=== PATIENT | female | born 1945 | race Caucasian/White ===

== ENCOUNTER 2017-06-21 15:18 | Emergency (ER) | payer MEDICARE, OTHER ==
[~2017-06-21] VITALS: Ht 162.6 cm; Wt 90.7 kg
[~2017-06-21 15:18] MED LIST: B12; BENADRYL25 MG PO; BENICAR20 MG PO; CALCIUM600 MG PO; CENTRAL-VITE H1 EACH PO; CITALOPRAM HBR20 MG PO; CYANOCOBAL1000 MCG/M IV; CYCLOBENZAPRINE5 MG; DILTIAZEM 24HR180 M1 PO; DILTIAZEM ER180 MG PO; DOXYCYCLINE HYC50 MG PO; EFFEXOR XR150 MG PO; EFFEXOR XR75 MG PO; EPIPEN JR0.15 MG/0. IM; HYDROCHLOROTH12.5 MG PO; HYDROCHLOROTHIA25 MG PO; HYDROCODON-ACE1 EAC8 PO; HYDROCODONE-HOMA5 ML PO; KLOR-CON M1010 MEQ PO; LORTAB ELIXIR473 ML PO; MIRALAX17 GM PO; NORCO 5-325 TA1 EACH PO; NORTRIPTYLINE H10 MG PO; NUCYNTA50 MG PO; OMEPRAZOLE20 MG PO; OMEPRAZOLE40 MG PO; PREVACID30 M1 PO; PROBIOTIC & AC1 EACH PO; TRAMADOL HCL50 MG; TRAMADOL HCL50 MG PO; TRAZODONE HCL100 MG PO; VITAMIN D32000 UNI1 PO
[2017-06-21] MEDS ORDERED: ULTRAM50 MG PO (17:11)
== END 2017-06-21 17:43 | disposition home or self-care (01) ==
LOC: ED 15:18
DX: S63.501A Unspecified sprain of right wrist, initial encounter (principal); S00.81XA Abrasion of other part of head, initial encounter; S69.92XA Unspecified injury of left wrist, hand and finger(s), initial encounter; K21.9 Gastro-esophageal reflux disease without esophagitis; I10 Essential (primary) hypertension; Z90.49 Acquired absence of other specified parts of digestive tract; Z90.710 Acquired absence of both cervix and uterus; Z98.890 Other specified postprocedural states; Z88.7 Allergy status to serum and vaccine; Z88.8 Allergy status to other drugs, medicaments and biological substances; Z88.5 Allergy status to narcotic agent; Z90.12 Acquired absence of left breast and nipple; Z88.6 Allergy status to analgesic agent; Z79.899 Other long term (current) drug therapy; W01.198A Fall on same level from slipping, tripping and stumbling with subsequent striking against other object, initial encounter
CPT/HCPCS: 70450; 71045; 73110; 99284

== ENCOUNTER 2019-04-17 07:51 | Emergency (ER) | payer MEDICARE, OTHER ==
[~2019-04-17] VITALS: Ht 162.6 cm; Wt 90.7 kg
[~2019-04-17 07:51] MED LIST changes: +ULTRAM50 MG PO
[2019-04-17] MEDS ORDERED: ACYCLOVIR400 MG PO (08:22)
[2019-04-17] MEDS ORDERED: ZYLOPRIM300 MG PO (08:24)
[2019-04-17] MEDS ORDERED: AMOXICILLIN500 MG PO (08:36)
[2019-04-17] MEDS ORDERED: ZOFRAN4 MG PO (08:36)
[2019-04-17] MEDS ORDERED: ULTRAM50 MG PO (08:36)
== END 2019-04-17 08:56 | disposition home or self-care (01) ==
LOC: ED 07:51
DX: K08.89 Other specified disorders of teeth and supporting structures (principal); I10 Essential (primary) hypertension; K21.9 Gastro-esophageal reflux disease without esophagitis; Z88.7 Allergy status to serum and vaccine; Z88.8 Allergy status to other drugs, medicaments and biological substances; Z88.5 Allergy status to narcotic agent; Z79.01 Long term (current) use of anticoagulants; Z79.82 Long term (current) use of aspirin; Z91.012 Allergy to eggs; Z79.899 Other long term (current) drug therapy
CPT/HCPCS: 99282

== ENCOUNTER 2020-07-16 10:45 | Emergency (ER) | payer MEDICARE, OTHER ==
[~2020-07-16] VITALS: Ht 162.6 cm; Wt 81.6 kg
[~2020-07-16 10:45] MED LIST changes: +ACYCLOVIR400 MG PO; +AMOXICILLIN500 MG PO; +ZOFRAN4 MG PO; +ZYLOPRIM300 MG PO
[2020-07-16] MEDS ORDERED: POTASSIUM CHLOR8 ME1 PO (11:12)
[2020-07-16] MEDS ORDERED: METOPROLOL SUCC50 MG PO (11:12)
[2020-07-16] MEDS ORDERED: NITROGLYCERIN0.4 MG SL (11:12)
[2020-07-16] MEDS ORDERED: OXYBUTYNIN CHLO10 MG PO (11:12)
[2020-07-16] MEDS ORDERED: AMLODIPINE BESY10 MG PO (11:12)
== END 2020-07-16 12:13 | disposition home or self-care (01) ==
LOC: ED 10:45
DX: S20.212A Contusion of left front wall of thorax, initial encounter (principal); W01.198A Fall on same level from slipping, tripping and stumbling with subsequent striking against other object, initial encounter; I10 Essential (primary) hypertension; K21.9 Gastro-esophageal reflux disease without esophagitis; Z88.7 Allergy status to serum and vaccine; Z88.8 Allergy status to other drugs, medicaments and biological substances; Z88.5 Allergy status to narcotic agent; Z91.012 Allergy to eggs; Z79.899 Other long term (current) drug therapy
CPT/HCPCS: 71101; 99283-25

== ENCOUNTER 2021-02-12 10:41 | Emergency (ER) | payer OTHER, MEDICARE ==
[~2021-02-12] VITALS: Ht 162.6 cm; Wt 81.7 kg
[~2021-02-12 10:41] MED LIST changes: +AMLODIPINE BESY10 MG PO; +METOPROLOL SUCC50 MG PO; +NITROGLYCERIN0.4 MG SL; +OXYBUTYNIN CHLO10 MG PO; +POTASSIUM CHLOR8 ME1 PO
== END 2021-02-12 11:36 | disposition home or self-care (01) ==
LOC: ED 10:41
PROC: 0HQGXZZ Repair Left Hand Skin, External Approach (ICD-10-PCS; principal; 2021-02-12)
DX: S61.412A Laceration without foreign body of left hand, initial encounter (principal); I10 Essential (primary) hypertension; Z88.7 Allergy status to serum and vaccine; Z91.048 Other nonmedicinal substance allergy status; Z88.8 Allergy status to other drugs, medicaments and biological substances; Z88.5 Allergy status to narcotic agent; Z88.6 Allergy status to analgesic agent; Z79.899 Other long term (current) drug therapy; W23.0XXA Caught, crushed, jammed, or pinched between moving objects, initial encounter
CPT/HCPCS: 12002; 99282-25

== ENCOUNTER 2021-10-27 20:55 | Emergency (ER) | payer MEDICARE, OTHER ==
[~2021-10-27] VITALS: Ht 162.6 cm; Wt 83.3 kg
[2021-10-27] MEDS ORDERED: NEXIUM 24HR20 M2 PO (21:07)
== END 2021-10-27 21:52 | disposition home or self-care (01) ==
LOC: ED 20:55
DX: S63.501A Unspecified sprain of right wrist, initial encounter (principal); W18.30XA Fall on same level, unspecified, initial encounter; I10 Essential (primary) hypertension; K21.9 Gastro-esophageal reflux disease without esophagitis; M19.90 Unspecified osteoarthritis, unspecified site; Z88.7 Allergy status to serum and vaccine; Z88.8 Allergy status to other drugs, medicaments and biological substances; Z88.5 Allergy status to narcotic agent; Z91.012 Allergy to eggs; Z88.6 Allergy status to analgesic agent; Z79.899 Other long term (current) drug therapy
CPT/HCPCS: 73090; 73130; 99283-25; A9270

== ENCOUNTER 2022-03-03 21:15 | Emergency (ER) | payer MEDICARE, OTHER ==
[~2022-03-03] VITALS: Ht 162.6 cm; Wt 79.0 kg
[~2022-03-03 21:15] MED LIST changes: +NEXIUM 24HR20 M2 PO
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
[2022-03-04] MEDS ORDERED: BENZONATATE100 MG PO (01:11)
== END 2022-03-04 01:38 | disposition home or self-care (01) ==
LOC: ED 21:15
DX: J04.0 Acute laryngitis (principal); I10 Essential (primary) hypertension; K21.9 Gastro-esophageal reflux disease without esophagitis; Z20.822 Contact with and (suspected) exposure to COVID-19; Z79.899 Other long term (current) drug therapy
CPT/HCPCS: 71045; 87081; 87502; 87880; 99283-25; U0003

== ENCOUNTER 2022-07-12 18:20 | Emergency (ER) | payer MEDICARE, OTHER ==
[~2022-07-12] VITALS: Ht 162.6 cm; Wt 79.0 kg
[~2022-07-12 18:20] MED LIST changes: +BENZONATATE100 MG PO
[2022-07-12] MEDS ORDERED: DOXYCYCLINE HY100 MG PO (19:08)
== END 2022-07-12 20:25 | disposition home or self-care (01) ==
LOC: ED 18:20
DX: S61.451A Open bite of right hand, initial encounter (principal); S61.551A Open bite of right wrist, initial encounter; W55.01XA Bitten by cat, initial encounter; I10 Essential (primary) hypertension; K21.9 Gastro-esophageal reflux disease without esophagitis; Z88.7 Allergy status to serum and vaccine; Z88.8 Allergy status to other drugs, medicaments and biological substances; Z88.5 Allergy status to narcotic agent; Z88.1 Allergy status to other antibiotic agents; Z91.012 Allergy to eggs; Z79.899 Other long term (current) drug therapy; Z88.6 Allergy status to analgesic agent
CPT/HCPCS: 36415; 85025; 96374; 99283-25; A9270

== ENCOUNTER 2023-04-10 20:45 | Emergency (ER) | payer OTHER, MEDICARE ==
[~2023-04-10] VITALS: Ht 162.6 cm; Wt 85.4 kg
[~2023-04-10 20:45] MED LIST changes: +DOXYCYCLINE HY100 MG PO
[2023-04-10] MEDS ORDERED: GEMTESA75 MG PO (21:06)
[2023-04-10] MEDS ORDERED: BENICAR40 MG PO (21:07)
[2023-04-10] MEDS ORDERED: VENLAFAXINE HC225 MG PO (21:08)
[2023-04-10] MEDS ORDERED: IVIZIA 0.5% EYE5 ML OP (21:09)
[2023-04-10] MEDS ORDERED: MACULAR VITAMI1 EACH PO (21:10)
[2023-04-10] MEDS ORDERED: CYCLOBENZAPRINE10 MG PO (21:14)
[2023-04-10] MEDS ORDERED: PREDNISONE20 MG PO (21:14)
[2023-04-10 21:56] VITALS: BP 159/72
== END 2023-04-10 21:56 | disposition home or self-care (01) ==
LOC: ED 20:45
DX: S16.1XXA Strain of muscle, fascia and tendon at neck level, initial encounter (principal); M43.6 Torticollis; I10 Essential (primary) hypertension; X58.XXXA Exposure to other specified factors, initial encounter; Z88.7 Allergy status to serum and vaccine; Z88.8 Allergy status to other drugs, medicaments and biological substances; Z88.5 Allergy status to narcotic agent; Z79.899 Other long term (current) drug therapy
CPT/HCPCS: 99283; J7512

== ENCOUNTER 2023-06-05 20:10 | Emergency (ER) | payer MEDICARE, OTHER ==
[~2023-06-05] VITALS: Ht 162.6 cm; Wt 85.4 kg
[~2023-06-05 20:10] MED LIST changes: +BENICAR40 MG PO; +CYCLOBENZAPRINE10 MG PO; +GEMTESA75 MG PO; +IVIZIA 0.5% EYE5 ML OP; +MACULAR VITAMI1 EACH PO; +PREDNISONE20 MG PO; +VENLAFAXINE HC225 MG PO
[2023-06-05 20:45] LABS: BASOPHILS 0.3 % (0-2); EOSINOPHILS 11.3 % (0-6); HEMOGLOBIN 12.8 g/dL (12.0-18.0); MCH 30.5 (27-36); MCHC 32.8 g/dl (30-36); MCV 92.9 fl (81-99); MONOCYTES 8.6 % (0-12); NEUTROPHILS 59.8 % (39-80); PLATELET COUNT 359 K/uL (140-440); RBC 4.19 M/ul (4.3-5.7); RDW 14.5 (10.5-15.0)
[2023-06-05 20:53] LABS: INR 0.95 (0.80-1.30)
[2023-06-05 21:11] LABS: ALBUMIN 3.1 g/dL (3.4-5.0); ALBUMIN/GLOBULIN RATIO 0.69 (1.1-2.4); ANION GAP 13.6 (7-21); BILIRUBIN, TOTAL 0.4 ng/dL (0.2-1.0); BUN/CREATININE RATIO 8.54 (6.0-28.6); CALCIUM 8.8 mg/dL (8.5-10.1); CREATININE, SERUM 1.17 mg/dL (0.55-1.02); POTASSIUM 3.6 mmol/L (3.5-5.1); PROTEIN, TOTAL 7.6 g/dL (6.4-8.2)
[2023-06-05 21:25] LABS: INFLUENZA B NAA NEGATIVE (NEGATIVE); RESPIRATORY SYNCYTIAL VIR NAA NEGATIVE (NEGATIVE)
[2023-06-05] MEDS ORDERED: AMOX TR-K CLV1 EAC1 PO (23:17)
[2023-06-05 23:28] VITALS: BP 147/89
--- NOTE | 2023-06-07 15:22 | EKG ---
[facility] [address] [facility] [place], [place] [address] Signed Sinus rhythm with marked sinus arrhythmia Otherwise normal ECG When compared with ECG of 14-NOV-2016 12:22, No significant change was found Confirmed by SHONNA DAVID MD ([id number]) on 06/07/2023 3:22:24 PM Electronically Signed By: SHONNA DAVID 06/07/23 1522 PATIENT NAME: DAMARIS KIM CATARINO Electrocardiogram DATE OF : 45 PHYSICIAN: SHONNA DAVID REPORT #: [id number] REPORT IS CONFIDENTIAL AND NOT TO BE RELEASED WITHOUT AUTHORIZATION
== END 2023-06-05 23:29 | disposition home or self-care (01) ==
LOC: ED 20:10
PROVIDERS: Emergency Medicine
DX: J01.00 Acute maxillary sinusitis, unspecified (principal); D72.829 Elevated white blood cell count, unspecified; I10 Essential (primary) hypertension; M79.7 Fibromyalgia; Z11.52 Encounter for screening for COVID-19; Z88.7 Allergy status to serum and vaccine; Z88.8 Allergy status to other drugs, medicaments and biological substances; Z88.5 Allergy status to narcotic agent; Z88.6 Allergy status to analgesic agent; Z91.012 Allergy to eggs; Z91.048 Other nonmedicinal substance allergy status; Z79.899 Other long term (current) drug therapy
CPT/HCPCS: 36415; 70486; 71045; 80053; 83605; 84484; 85025; 85610; 87502; 93005; 93010; 96374; 99284-25; J0696; J7030; U0002

== ENCOUNTER 2024-01-17 07:57 | Emergency (ER) | payer MEDICARE, OTHER ==
[~2024-01-17] VITALS: Ht 162.6 cm; Wt 83.7 kg
[~2024-01-17 07:57] MED LIST changes: +AMOX TR-K CLV1 EAC1 PO
[2024-01-17] MEDS ORDERED: TOBREX3.5 GM OPTH (08:38)
[2024-01-17 08:44] VITALS: BP 167/70
== END 2024-01-17 08:43 | disposition home or self-care (01) ==
LOC: ED 07:57
DX: H10.9 Unspecified conjunctivitis (principal); I10 Essential (primary) hypertension; K21.9 Gastro-esophageal reflux disease without esophagitis; Z88.7 Allergy status to serum and vaccine; Z88.8 Allergy status to other drugs, medicaments and biological substances; Z88.5 Allergy status to narcotic agent; Z91.012 Allergy to eggs; Z91.018 Allergy to other foods; Z79.899 Other long term (current) drug therapy
CPT/HCPCS: 99283

== ENCOUNTER 2024-08-01 07:43 | Day surgery (SDC) | payer MEDICARE, OTHER ==
[2024-07-28 13:25] VITALS: BP 138/92
[~2024-08-01] VITALS: Ht 162.6 cm; Wt 85.5 kg
[~2024-08-01 07:43] MED LIST changes: +BOTULINUM TOXIN TYPE A 100 UNITS VIAL IM ONE; +CEFAZOLIN SODIUM 2 GM/20 ML SYR IV SCH; +COL-RITE100 MG PO; +DEXAMETHASONE SOD PHOS 4 MG/ML VIAL ONE; +FAMOTIDINE 20 MG/ 2 ML VIAL ONE; +IBLOOD GLUCOSE TEST STRIP 1 EA TEST VI PRN; +KETOROLAC TROMETHAMINE 30 MG/ML VIAL ONE; +LACTATED RINGER'S 1,000 ML IV ONE; +LACTATED RINGER'S 1,000 ML IV SCH; +LIDOCAINE HCL 1% 5 ML SDV INJ ONE; +METOCLOPRAMIDE HCL 10 MG/2 ML SDV ONE; +MIDAZOLAM HCL 2 MG/2 ML VIAL ONE; +PATADAY2.5 ML OP; +TOBREX3.5 GM OPTH; +VALACYCLOVIR500 MG PO; +fentaNYL citrate 100 MCG/2 ML VIAL ONE; +ondansetron HCL 4 MG/2 ML VIAL ONE; +propofoL 200 MG/20 ML VIAL ONE
[2024-08-01] MEDS ORDERED: NALOXONE HCL 0.4 MG SYR IV PRN (08:00)
[2024-08-01] MEDS ORDERED: METOCLOPRAMIDE HCL 10 MG/2 ML SDV IV PRN (08:00)
[2024-08-01] MEDS ORDERED: fentaNYL citrate 50 MCG/ML SDV IV PRN (08:00)
[2024-08-01] MEDS ORDERED: MEPERIDINE HCL 25 MG/1 ML VIAL IV PRN (08:00)
[2024-08-01] MEDS ORDERED: IBLOOD GLUCOSE TEST STRIP 1 EA TEST VI PRN (08:00)
[2024-08-01] MEDS ORDERED: ondansetron HCL 4 MG/2 ML VIAL IV PRN ×2 (08:00→09:45)
[2024-08-01] MEDS ORDERED: droPERidol 5 MG/2 ML VIAL IV PRN (08:00)
[2024-08-01] MEDS ORDERED: PROCHLORPERAZINE EDISYLATE 10 MG/2 ML VIAL IV PRN (08:00)
[2024-08-01 08:08] VITALS: BP 148/86
[2024-08-01] MEDS ORDERED: CEPHALEXIN500 MG PO (08:23)
[2024-08-01] MEDS ORDERED: BOTULINUM TOXIN TYPE A 100 UNITS VIAL ONE (09:38)
[2024-08-01] MEDS ORDERED: DEXAMETHASONE SOD PHOS 4 MG/ML VIAL ONE (09:56)
[2024-08-01] MEDS ORDERED: MIDAZOLAM HCL 2 MG/2 ML VIAL ONE (09:56)
[2024-08-01] MEDS ORDERED: diphenhydrAMINE HCL 50 MG/ML VIAL ONE (09:56)
[2024-08-01 11:09] VITALS: BP 137/87
--- NOTE | 2024-08-01 11:39 | NUR ---
08/01/24 1139 Merissa Leon 1038 PT ARRIVED IN PACU SLEEPY WITH NO C/O'S. SATS 88-90% ON RA. ENCOURAGED COUGH, DEEP BREATHING. 1100 SITTING UP IN BED SIPPING ON WATER. 1105 UP TO BATHROOM WITH ONE PERSON ASSIST AND VOIDED 200ML. 1110 BACK AT BEDSIDE GETTING DRESSED. 1124 DC INSTRUCTIONS GIVEN. ALL QUESTIONS ANSWERED. LEFT VIA W/C.
== END 2024-08-01 11:24 | disposition home or self-care (01) ==
LOC: DS 07:43
PROVIDERS: ATTEND Urology
PROC: 0TVD0ZZ Restriction of Urethra, Open Approach (ICD-10-PCS; principal; 2024-08-01 09:20)
PROC: 3E0K8GC Introduction of Other Therapeutic Substance into Genitourinary Tract, Via Natural or Artificial Opening Endoscopic (ICD-10-PCS; 2024-08-01 09:20)
DX: N36.42 Intrinsic sphincter deficiency (ISD) (principal); N39.3 Stress incontinence (female) (male); N32.81 Overactive bladder; I10 Essential (primary) hypertension; K21.9 Gastro-esophageal reflux disease without esophagitis; E78.00 Pure hypercholesterolemia, unspecified; M19.90 Unspecified osteoarthritis, unspecified site; Z88.2 Allergy status to sulfonamides; Z88.5 Allergy status to narcotic agent; Z88.8 Allergy status to other drugs, medicaments and biological substances
CPT/HCPCS: 00910; J0585; J0690; J1100; J1200; J1885; J2250; J2405; J2704; J2765; J3010; J7121; L8606

== ENCOUNTER 2025-01-14 09:46 | Emergency (ER) | payer OTHER, MEDICARE ==
[~2025-01-14] VITALS: Ht 162.6 cm; Wt 85.5 kg
[~2025-01-14 09:46] MED LIST changes: -BOTULINUM TOXIN TYPE A 100 UNITS VIAL IM ONE; -CEFAZOLIN SODIUM 2 GM/20 ML SYR IV SCH; +CEPHALEXIN500 MG PO; -DEXAMETHASONE SOD PHOS 4 MG/ML VIAL ONE; -FAMOTIDINE 20 MG/ 2 ML VIAL ONE; -IBLOOD GLUCOSE TEST STRIP 1 EA TEST VI PRN; -KETOROLAC TROMETHAMINE 30 MG/ML VIAL ONE; -LACTATED RINGER'S 1,000 ML IV ONE; -LACTATED RINGER'S 1,000 ML IV SCH; -LIDOCAINE HCL 1% 5 ML SDV INJ ONE; -METOCLOPRAMIDE HCL 10 MG/2 ML SDV ONE; -MIDAZOLAM HCL 2 MG/2 ML VIAL ONE; -fentaNYL citrate 100 MCG/2 ML VIAL ONE; -ondansetron HCL 4 MG/2 ML VIAL ONE; -propofoL 200 MG/20 ML VIAL ONE
[2025-01-14] MEDS ORDERED: LEVOTHYROXINE25 MCG PO (10:08)
[2025-01-14 12:12] VITALS: BP 143/84
== END 2025-01-14 12:12 | disposition home or self-care (01) ==
LOC: ED 09:46
DX: S20.213A Contusion of bilateral front wall of thorax, initial encounter (principal); M25.511 Pain in right shoulder; W01.0XXA Fall on same level from slipping, tripping and stumbling without subsequent striking against object, initial encounter; I10 Essential (primary) hypertension; K21.9 Gastro-esophageal reflux disease without esophagitis; Z79.899 Other long term (current) drug therapy; Z88.8 Allergy status to other drugs, medicaments and biological substances; Z88.7 Allergy status to serum and vaccine; Z88.5 Allergy status to narcotic agent; Z88.2 Allergy status to sulfonamides; Z91.012 Allergy to eggs; Z91.018 Allergy to other foods
CPT/HCPCS: 70486; 71045; 73030; 99284-25

== ENCOUNTER 2025-02-08 18:38 | Emergency (ER) | payer MEDICARE, OTHER ==
[~2025-02-08] VITALS: Ht 162.6 cm; Wt 85.5 kg
[~2025-02-08 18:38] MED LIST changes: +LEVOTHYROXINE25 MCG PO
--- OUTSIDE RECORDS SUMMARY | 2025-02-08 18:46 | XMS ---
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 Alec VISIT COUNT (12 MO.) 2 [facility] TOTAL 2 NOTE: Visits indicate total known visits. ED/UCC VISIT TRACKING (12 MO.) 02/08/2025 18:39 [facility] [place] TYPE: Emergency COMPLAINT: - VOMITING 01/14/2025 09:47 [facility] [place] TYPE: Emergency COMPLAINT: - BILATE RIB PAIN DIAGNOSES: - Allergy status to narcotic agent - Allergy status to other drugs, medicaments and biological substances - Allergy status to serum and vaccine - Allergy status to sulfonamides - Allergy to eggs - Allergy to other foods - Contusion of bilateral front wall of thorax, initial encounter - Essential (primary) hypertension - Fall on same level from slipping, tripping and stumbling without subsequent striking against object, initial encounter - Gastro-esophageal reflux disease without esophagitis - Other chest pain - Other long term care administrator (current) drug therapy - Pain in right shoulder INPATIENT VISIT TRACKING (12 MO.) No inpatient visits to display in this time frame [email or web address]
[2025-02-08] MEDS ORDERED: SODIUM CHLORIDE 0.9% 500 ML IV ONE (19:00)
[2025-02-08 19:11] LABS: BASOPHILS 0.7 % (0.1-1.2); EOSINOPHILS 12.7 % (0.7-5.8); LYMPHOCYTES 38.1 % (19.3-51.7); MCH 30.1 PG (25.6-32.2); MCHC 34.6 g/dL (32.2-35.5); MCV 86.8 fL (79.4-94.8); MONOCYTES 9.1 % (4.7-12.5); NEUTROPHILS 39.0 % (34.0-71.1); RBC 4.69 M/uL (3.93-5.22)
[2025-02-08 19:30] LABS: ALT (SGPT) 34.0 U/L (14-59); AST (SGOT) 29.0 U/L (15-37); GLOMERULAR FILTRATION RATE,EST 61.0 mL/min (>60); PROTEIN, TOTAL 7.7 g/dL (6.4-8.2); UREA NITROGEN 11.0 mg/dL (7-18)
[2025-02-08] MEDS ORDERED: LACTATED RINGER'S 1,000 ML IV ONE (20:45)
[2025-02-08] MEDS ORDERED: AMOX TR-K CLV1 EAC1 PO (21:38)
[2025-02-08] MEDS ORDERED: ONDANSETRON ODT4 MG PO (21:38)
[2025-02-08 21:45] LABS: BLOOD/HGB, URINE NEGATIVE (Negative); KETONE, URINE NEGATIVE (Negative); LEUK ESTERASE, URINE SMALL (negative); NITRITE, URINE NEGATIVE (negative)
[2025-02-08] MEDS ORDERED: AMOXICILLIN/CLAVULANATE K 875 MG HOME.PACK PO ONE (21:45)
[2025-02-08 21:50] LABS: CRYSTALS, URINE NONE SEEN (0-1+)
[2025-02-08 21:51] LABS: BACTERIA, URINE RARE /hpf (negative); CASTS, URINE NONE SEEN \\lpf; REFLEX CULTURE, URINE No (No)
[2025-02-08 22:47] VITALS: BP 133/86
== END 2025-02-08 22:55 | disposition home or self-care (01) ==
LOC: ED 18:38
PROVIDERS: Internal Medicine
DX: K57.32 Diverticulitis of large intestine without perforation or abscess without bleeding (principal); I10 Essential (primary) hypertension; Z79.899 Other long term (current) drug therapy; Z91.012 Allergy to eggs; Z88.8 Allergy status to other drugs, medicaments and biological substances; Z88.5 Allergy status to narcotic agent; Z88.2 Allergy status to sulfonamides; Z91.041 Radiographic dye allergy status; Z88.7 Allergy status to serum and vaccine; Z88.6 Allergy status to analgesic agent
CPT/HCPCS: 36415; 71045; 74176; 80053; 81001; 83690; 83735; 84443; 84484; 85025; 96361; 96374; 99284-25; J2405; J7040; J7121

== ENCOUNTER 2025-05-14 19:05 | Emergency (ER) | payer MEDICARE, OTHER ==
[~2025-05-14] VITALS: Ht 162.6 cm; Wt 82.7 kg
--- NOTE | ~2025-05-14 | EKG ---
[facility] [address] [facility] [place], [place] [address] Draft EK completed, results pending confirmation PATIENT NAME: JUDYDAMARIS TORIBIO Electrocardiogram DATE OF : 45 PHYSICIAN: PRELIMINARY REPORT #: [id number] REPORT IS CONFIDENTIAL AND NOT TO BE RELEASED WITHOUT AUTHORIZATION
[~2025-05-14 19:05] MED LIST changes: +ONDANSETRON ODT4 MG PO
[2025-05-14] MEDS ORDERED: TRANEXAMIC ACI650 MG PO (19:25)
[2025-05-14 19:51] LABS: BASOPHILS 1.4 % (0.1-1.2); EOSINOPHILS 9.6 % (0.7-5.8); LYMPHOCYTES 36.7 % (19.3-51.7); MCH 30.0 PG (25.6-32.2); MCHC 34.2 g/dL (32.2-35.5); MCV 87.8 fL (79.4-94.8); MONOCYTES 8.4 % (4.7-12.5); NEUTROPHILS 43.6 % (34.0-71.1); RBC 4.83 M/uL (3.93-5.22)
[2025-05-14 19:56] LABS: INR 0.97 (0.80-1.30); PROTIME 12.2 Sec (11.2-14.2)
[2025-05-14] MEDS ORDERED: ASPIRIN 81 MG CHEW PO ONE (20:00)
[2025-05-14 20:08] LABS: ALT (SGPT) 19.0 U/L (14-59); AST (SGOT) 16.0 U/L (15-37); GLOMERULAR FILTRATION RATE,EST 65.0 mL/min (>60); PROTEIN, TOTAL 8.4 g/dL (6.4-8.2); UREA NITROGEN 15.0 mg/dL (7-18)
[2025-05-14] MEDS ORDERED: CANDICIDAL CAP1 EACH (20:29)
[2025-05-14 20:40] LABS: INFLUENZA B NAA NEGATIVE (NEGATIVE); RESPIRATORY SYNCYTIAL VIR NAA NEGATIVE (NEGATIVE)
[2025-05-14] MEDS ORDERED: LIDOCAINE & ANTACID 35 ML BTL PO ONE (20:45)
[2025-05-14] MEDS ORDERED: SUCRALFATE 1 GM TAB PO ONE (20:45)
[2025-05-14] MEDS ORDERED: PANTOPRAZOLE SODIUM 40 MG/10 ML VIAL IV ONE (20:45)
[2025-05-14] MEDS ORDERED: PROTONIX40 MG PO (21:33)
[2025-05-14] MEDS ORDERED: CARAFATE1 GM PO (21:33)
[2025-05-14 21:36] VITALS: BP 162/70
== END 2025-05-14 21:44 | disposition home or self-care (01) ==
LOC: ED 19:05
PROVIDERS: Family Medicine
DX: R07.89 Other chest pain (principal); I10 Essential (primary) hypertension; K21.9 Gastro-esophageal reflux disease without esophagitis; Z79.899 Other long term (current) drug therapy; Z88.6 Allergy status to analgesic agent; Z91.0120 Allergy to eggs, unspecified; Z88.8 Allergy status to other drugs, medicaments and biological substances; Z88.2 Allergy status to sulfonamides; Z88.5 Allergy status to narcotic agent; Z88.7 Allergy status to serum and vaccine
CPT/HCPCS: 36415; 71045; 80053; 83735; 83880; 84484; 85025; 85379; 85610; 87502; 93005; 93010; 96374; 99284-25; J2470; U0002